=== PATIENT | male | born 1990 | race Caucasian/White ===

== ENCOUNTER 2017-12-04 17:42 | Emergency (ER) | payer MEDICAID ==
[~2017-12-04] VITALS: Ht 180.3 cm; Wt 93.0 kg
[2017-12-04 17:49] VITALS: BP_SYST 133
[2017-12-04] MEDS ORDERED: IBUPROFEN 800 MG TABLET PO ONE (19:30)
[2017-12-04] MEDS ORDERED: AMOXICILLIN/CLAVULANATE POTASSIUM 875 MG TABLET PO ONE (19:30)
[2017-12-04 19:56] VITALS: BP_SYST 125
== END 2017-12-04 19:56 | disposition home or self-care (01) ==
LOC: SED 17:42
DX: J01.00 Acute maxillary sinusitis, unspecified (principal); R03.0 Elevated blood-pressure reading, without diagnosis of hypertension; F17.210 Nicotine dependence, cigarettes, uncomplicated
CPT/HCPCS: 36415; 71045; 86710; 99285